=== PATIENT | female | born 1965 | race Caucasian/White ===

== ENCOUNTER 2024-07-25 06:09 | Emergency (ER) | payer BC ==
[2024-07-25] MEDS ORDERED: IBUPROFEN 400 MG TAB ONE (06:40)
[2024-07-25] MEDS ORDERED: IBUPROFEN 200 MG TAB PO ONE (06:40)
[2024-07-25] MEDS ORDERED: BENZONATATE 100 MG CAP PO ONE (06:40)
[2024-07-25 07:13] LABS: Influenza A Ag Negative; Influenza B Ag Positive
[2024-07-25 07:15] LABS: SARS-CoV-2 Antigen Rapid Res Positive (Negative)
--- NOTE | 2024-07-25 07:55 | RAD REPORT ---
Procedure: Chest Pa And Lat (2 Views) HISTORY: Cough COMPARISON: none FINDINGS: The lungs appear clear of acute infiltrate. No significant pleural effusion noted. The heart is normal size. IMPRESSION: No acute abnormality is displayed.
--- NOTE | 2024-07-25 08:09 | ER ---
Nurse's Notes [facility] Name: Radha Dow Age: 59 yrs Sex: Female : 1965 Arrival Date: 07/25/2024 Time: 06:09 Bed 21 Private MD: Diagnosis: Influenza B;SARS-associated coronavirus as the cause of diseases classified elsewhere Presentation: 07/25 06:29 Chief complaint: Patient states: cough, congestion, body aches X2 days. Coronavirus lg3 screen: Client denies travel out of the [place] in the last 14 days. Client presents with at least one sign or symptom that may indicate coronavirus-19. Standard/surgical mask placed on the client. Ebola Screen: No symptoms or risks identified at this time. Risk Assessment: Do you want to hurt yourself or someone else? Patient reports no desire to harm self or others. Onset of symptoms was July 23, 2024. 06:29 Method Of Arrival: Ambulatory lg3 06:29 Acuity: SAW 4 lg3 Triage Assessment: 06:29 General: Appears in no apparent distress. uncomfortable, Behavior is calm, cooperative. lg3 Pain: Complains of pain in generalized body aches. EENT: No deficits noted. Reports nasal congestion nasal discharge. Neuro: No deficits noted. Gonzales Agitation-Sedation Scale (RASS): 0 - Alert and Calm Level of Consciousness is awake, alert, obeys commands, Oriented to person, place, time, situation. Cardiovascular: No deficits noted. Denies chest pain, shortness of breath, Capillary refill < 3 seconds Clubbing of nail beds is absent JVD is absent Patient's skin is warm and dry. Respiratory: No deficits noted. Reports cough that is dry, persistent Airway is patent Respiratory effort is even, unlabored, Respiratory pattern is regular, symmetrical. GI: No deficits noted. No signs and/or symptoms were reported involving the gastrointestinal system. : No signs and/or symptoms were reported regarding the genitourinary system. Derm: No deficits noted. No signs and/or symptoms reported regarding the dermatologic system. Skin is intact, is healthy with good turgor, Skin is dry, Skin is normal, Skin temperature is warm. Musculoskeletal: No deficits noted. No signs and/or symptoms reported regarding the musculoskeletal system. Circulation, motion, and sensation intact. Range of motion: intact in all extremities. Historical: - Allergies: 06: No Known Allergies; lg3 - Home Meds: : lamotrigine oral [Active]; lg3 - PMHx: : Seizure; lg3 - PSHx: : section; lg3 - Immunization history:: Adult Immunizations up to date. - Infectious Disease History:: Denies. - Social history:: Smoking status: Patient denies any tobacco usage or history of. Patient/guardian denies using alcohol, street drugs. Screenin:30 [facility] ED Fall Risk Assessment (Adult) History of falling in the last 3 months, rg5 including since admission No falls in past 3 months (0 pts) Confusion or Disorientation No (0 pts) Intoxicated or Sedated No (0 pts) Impaired Gait No (0 pts) Mobility Assist Device Used Altered Elimination No (0 pt) Score/Fall Risk Level 0 - 2 = Low Risk Oriented to surroundings, Maintained a safe environment, Hourly rounding (assess needs \T\ fall precautionary measures) done. Abuse screen: Denies threats or abuse. Nutritional screening: No deficits noted. Tuberculosis screening: No symptoms or risk factors identified. Assessment: 06:30 General: Appears uncomfortable, Behavior is calm, cooperative, appropriate for age. rg5 Pain: Complains of pain in body. Neuro: Level of Consciousness is awake, alert, obeys commands, Oriented to person, place, time, situation. Cardiovascular: Denies chest pain, Patient's skin is warm and dry. Respiratory: Reports shortness of breath cough that is persistent Airway is patent Trachea midline Respiratory effort is even, unlabored, Respiratory pattern is regular, symmetrical, Breath sounds are clear. GI: Abdomen is round non-distended, Abd is soft and non tender. : No signs and/or symptoms were reported regarding the genitourinary system. EENT: No signs and/or symptoms were reported regarding the EENT system. Derm: Skin is intact, Skin is dry, Skin is normal, Skin temperature is warm. Musculoskeletal: Circulation, motion, and sensation intact. Range of motion: intact in all extremities. Vital Signs: :29 BP 138 / 94; Pulse 97; Resp 18; Temp 99; Pulse Ox 92% on R/A; Weight 86.18 kg; Height 5 oe ft. 4 in. ; 06:29 Body Mass Index 32.61 (86.18 kg, 162.56 cm) oe ED Course: 06:14 Patient arrived in ED. [id number] 06:25 Sudarshan Lopez DO is Attending Physician. ms3 06:25 Quincy Draper, DAMIAN is Primary Nurse. rg5 06:29 Triage completed. lg3 06:29 Arm band placed on right wrist. lg3 06:30 Patient has correct armband on for positive identification. Call light in reach. Door rg5 closed. Noise minimized. 06:30 No provider procedures requiring assistance completed. rg5 06:53 Chest Pa And Lat (2 Views) XRAY In Process Unspecified. EDMS 06:56 COVID-19 Ag + Flu A+B Ag Sent. oe 07:08 Primary Nurse role handed off by Quincy Draper RN bp 07:08 Derik Bonds, DAMIAN is Primary Nurse. bp 07:11 Attending Physician role handed off by Sudarshan Lopez DO ms3 07:11 Bryan Fisher MD is Attending Physician. ms3 08:06 Sudarshan Lopez DO is Attending Physician. ms3 08:09 Vin Ahn DO is Referral Physician. ms3 08:17 Patient did not have IV access during this emergency room visit. bp Administered Medications: 06:50 Drug: Ibuprofen PO 600 mg PO once Route: PO; rg5 08:18 Follow up: Response: No adverse reaction bp 06:50 Drug: Tessalon Perle PO 200 mg PO once Route: PO; rg5 08:18 Follow up: Response: No adverse reaction bp Medication: 06:30 VIS not applicable for this client. rg5 Outcome: 08:09 Discharge ordered by . ms3 08:17 Discharged to home ambulatory, with family, bp 08:17 Condition: stable 08:17 Discharge instructions given to patient, family, Instructed on discharge instructions, follow up and referral plans. medication usage, Demonstrated understanding of instructions, follow-up care, medications, Prescriptions given X 2, 08:18 Patient left the ED. bp Signatures: Dispatcher [employer] EDMS Servando Nicole oe Derik Bonds RN RN bp Able, Lacie, RN RN lg3 Sudarshan Lopez DO DO ms3 Jessica Ponce [email or web address] Draper, Quincy, RN RN rg5
--- NOTE | 2024-07-25 08:09 | EDPHYS ---
Physician Documentation [facility] Name: Radha Dow Age: 59 yrs Sex: Female : 1965 Arrival Date: 07/25/2024 Time: 06:09 Bed 21 Private MD: ED Physician Sudarshan Lopez HPI: 07/25 06:41 This 59 yrs old Female presents to ER via Ambulatory with complaints of Flu Symptoms. ms3 06:41 59-year-old female with past medical history of seizures presents to the emergency ms3 department for cough, body aches that began on Alek morning. Patient endorses chills. Patient denies nausea, vomiting, fever. Patient signs in the emergency department with similar symptoms.. Historical: - Allergies: 06:29 No Known Allergies; lg3 - Home Meds: 06:29 lamotrigine oral [Active]; lg3 - PMHx: 06:29 Seizure; lg3 - PSHx: 06:29 section; lg3 - Immunization history:: Adult Immunizations up to date. - Infectious Disease History:: Denies. - Social history:: Smoking status: Patient denies any tobacco usage or history of. Patient/guardian denies using alcohol, street drugs. ROS: 06:41 Cardiovascular: Negative for chest pain, and palpitations. Abdomen/GI: Negative for ms3 abdominal pain, nausea, vomiting, diarrhea, and constipation, MS/Extremity: Negative for injury and deformity, Skin: Negative for injury, rash, and discoloration, 06:41 Constitutional: Positive for body aches, chills, 06:41 Respiratory: Positive for cough, Exam: 06:41 Constitutional: This is a well developed, well nourished patient who is awake, alert, ms3 and in no acute distress. Cardiovascular: Regular rate and rhythm with a normal S1 and S2. No gallops, murmurs, or rubs. Normal PMI, no JVD. No pulse deficits. Respiratory: Lungs have equal breath sounds bilaterally, clear to auscultation and percussion. No rales, rhonchi or wheezes noted. No increased work of breathing, no retractions or nasal flaring. Abdomen/GI: Soft, non-tender, with normal bowel sounds. No distension or tympany. No guarding or rebound. No evidence of tenderness throughout. Skin: Warm, dry with normal turgor. Normal color with no rashes, no lesions, and no evidence of cellulitis. MS/ Extremity: Pulses equal, no cyanosis. Neurovascular intact. Full, normal range of motion. Vital Signs: 06:29 BP 138 / 94; Pulse 97; Resp 18; Temp 99; Pulse Ox 92% on R/A; Weight 86.18 kg; Height 5 oe ft. 4 in. ; 06:29 Body Mass Index 32.61 (86.18 kg, 162.56 cm) oe MDM: 06:32 Medical Screening Exam initiated ms3 06:41 Differential Diagnosis: Bronchitis Influenza Upper Respiratory Infection Viral Syndrome ms3 Pneumonia. 08:24 Data reviewed: vital signs, nurses notes, lab test result(s), radiologic studies, and ms3 as a result, I will discharge patient. I considered the following discharge prescriptions or medication management in the emergency department Medications were administered in the Emergency Department. See MAR. Counseling: I had a detailed discussion with the patient and/or guardian regarding the historical points, exam findings, and any diagnostic results supporting the discharge/admit diagnosis, lab results, radiology results, the need for outpatient follow up, to return to the emergency department if symptoms worsen or persist or if there are any questions or concerns that arise at home. Special discussion: I discussed with the patient/guardian in detail that at this point there is no indication for admission to the hospital. It is understood, however, that if the symptoms persist or worsen the patient needs to return immediately for re-evaluation. ED course: Discussed positive flu B and COVID results with patient. Patient to follow-up with Dr. Ahn in 2 to 3 days. Patient understands and agrees with plan. All questions were answered. Return precautions discussed include worsening symptoms, or any other concerns. On reevaluation patient is alert and oriented x 4, in no apparent distress, nontoxic-appearing, ambulatory in the emergency department, speaking full sentences.. 07/25 06:25 Order name: COVID-19 Ag + Flu A+B Ag; Complete Time: 07:18 ms3 07/25 06:33 Order name: Chest Pa And Lat (2 Views) XRAY; Complete Time: 08:07 ms3 Administered Medications: 06:50 Drug: Ibuprofen PO 600 mg PO once Route: PO; rg5 08:18 Follow up: Response: No adverse reaction bp 06:50 Drug: Tessalon Perle PO 200 mg PO once Route: PO; rg5 08:18 Follow up: Response: No adverse reaction bp Disposition Summary: 07/25/24 08:09 Discharge Ordered Notes: Location: Home ms3 Condition: Stable ms3 Diagnosis - Influenza B ms3 - SARS-associated coronavirus as the cause of diseases classified elsewhere ms3 Followup: ms3 - With: Vin Ahn DO - When: 2 - 3 days - Reason: Recheck today's complaints Discharge Instructions: - Discharge Summary Sheet ms3 - Influenza, Adult ms3 - COVID-19 ms3 Forms: - Work release form hb - Medication Reconciliation Form ms3 - Antibiotic Education ms3 - Prescription Opioid Use ms3 - Patient Portal Instructions ms3 - Leadership Thank You Letter ms3 Prescriptions: - benzonatate 200 mg Oral capsule - take 1 capsule ORAL route 3 times per day as needed; 20 capsule; Refills: 0, ms3 Product Selection Permitted - Tamiflu 75 mg Oral capsule - take 1 tablet ORAL route every 12 hours for 5 days; 10 tablet; Refills: 0, ms3 Product Selection Permitted Signatures: Dispatcher [employer] EDAnitha Delvalle RN RN lg3 Sudarshan Lopez DO DO ms3 Quincy Draper, DAMIAN RN rg5 Derik Bonds RN bp Corrections: (The following items were deleted from the chart) 06:25 06:25 COVID-19 Ag + Flu A+B Ag+I.LAB.BRZ ordered. EDND EDND 08:08 07:11 Transition of care: After a detail discussion of the patient's case, care is ms3 transferred to Bryan Fisher MD ms3
[2024-07-25 08:26] VITALS: BP 138/94; TEMP 99; O2SAT 92
== END 2024-07-25 08:18 | disposition home or self-care (01) ==
LOC: ER 06:09
DX: U07.1 COVID-19 (principal); J10.1 Influenza due to other identified influenza virus with other respiratory manifestations
CPT/HCPCS: 36415; 71046; 87428; 99283

== ENCOUNTER 2024-07-25 18:56 | Emergency (ER) | payer BC ==
--- NOTE | 2024-07-25 19:23 | EDPHYS ---
Physician Documentation [facility] Name: Radha Dow Age: 59 yrs Sex: Female : 1965 Arrival Date: 07/25/2024 Time: 18:56 Bed IW3 Private MD: ED Physician Araceli Ahn HPI: 07/25 19:21 This 59 yrs old Female presents to ER via Ambulatory with complaints of Covid+. sp3 19:21 59-year-old female with history of seizure seen earlier this morning and diagnosed with sp3 both COVID-19 and influenza and sent home on Tamiflu and Tessalon Perles. Patient returns with son with similar symptoms. Patient is also taken back in for an additional medication for cough. She states that the Tessalon Perles is not working. Remainder of ROS negative. Please see prior chart for full documentation on visit from earlier today.. Historical: - Allergies: 19:18 No Known Allergies; iw - PMHx: 19:18 Seizure; iw - PSHx: 19:18 section; iw - Immunization history:: Adult Immunizations not up to date. - Infectious Disease History:: Denies. - Social history:: Smoking status: Patient denies any tobacco usage or history of. ROS: 19:22 Constitutional: Negative for fever, chills, and weight loss, Eyes: Negative for injury, sp3 pain, redness, and discharge, ENT: Negative for injury, pain, and discharge, Neck: Negative for injury, pain, and swelling, Cardiovascular: Negative for chest pain, palpitations, and edema, Abdomen/GI: Negative for abdominal pain, nausea, vomiting, diarrhea, and constipation, Back: Negative for injury and pain, MS/Extremity: Negative for injury and deformity, Skin: Negative for injury, rash, and discoloration, Neuro: Negative for headache, weakness, numbness, tingling, and seizure, Psych: Negative for depression, anxiety, suicide ideation, homicidal ideation, and hallucinations, Allergy/Immunology: Negative for hives, rash, and allergies, 19:22 All other systems are negative, Exam: 19:22 Constitutional: This is a well developed, well nourished patient who is awake, alert, sp3 and in no acute distress. Head/Face: Normocephalic, atraumatic. Eyes: Pupils equal round and reactive to light, extra-ocular motions intact. Lids and lashes normal. Conjunctiva and sclera are non-icteric and not injected. Cornea within normal limits. Periorbital areas with no swelling, redness, or edema. ENT: Nares patent. No nasal discharge, no septal abnormalities noted. External auditory canals are clear. Oropharynx with no redness, swelling, or masses, exudates, or evidence of obstruction, uvula midline. Mucous membranes moist. Neck: Trachea midline, no thyromegaly or masses palpated, and no cervical lymphadenopathy. Supple, full range of motion without nuchal rigidity, or vertebral point tenderness. No Meningismus. Chest/axilla: Normal chest wall appearance and motion. Nontender with no deformity. No lesions are appreciated. Cardiovascular: Regular rate and rhythm with a normal S1 and S2. No gallops, murmurs, or rubs. Normal PMI, no JVD. No pulse deficits. Abdomen/GI: Soft, non-tender, with normal bowel sounds. No distension or tympany. No guarding or rebound. No evidence of tenderness throughout. Back: No spinal tenderness. No costovertebral tenderness. Full range of motion. Skin: Warm, dry with normal turgor. Normal color with no rashes, no lesions, and no evidence of cellulitis. MS/ Extremity: Pulses equal, no cyanosis. Neurovascular intact. Full, normal range of motion. Neuro: Awake and alert, GCS 15, oriented to person, place, time, and situation. Cranial nerves II-XII grossly intact. Motor strength 5/5 in all extremities. Sensory grossly intact. Cerebellar exam normal. Normal gait. 19:22 Respiratory: Active cough noted. Vital signs otherwise normal and stable., Vital Signs: 19:17 BP 129 / 96; Pulse 92; Resp 18; Temp 99; Pulse Ox 96% on R/A; Weight 86.18 kg; Height 5 iw ft. 4 in. ; 19:17 Body Mass Index 32.61 (86.18 kg, 162.56 cm) iw MDM: 19:07 Medical Screening Exam initiated sp3 19:22 Data reviewed: vital signs, nurses notes, old medical records. ED course: Will add sp3 Bromfed to medications. I have urged patient to get her Tamiflu filled even if she has to drive to [place].. Administered Medications: No medications were administered Disposition Summary: 02/23/25 19:23 Discharge Ordered Notes: Location: Home sp3 Condition: Stable sp3 Diagnosis - COVID-19, cough sp3 Followup: sp3 - With: Private Physician - When: Upon discharge from the Emergency Department - Reason: Continuance of care Discharge Instructions: - Discharge Summary Sheet sp3 - COVID-19 sp3 Forms: - Medication Reconciliation Form sp3 - Antibiotic Education sp3 - Prescription Opioid Use sp3 - Patient Portal Instructions sp3 - Leadership Thank You Letter sp3 Prescriptions: - Bromfed DM 2-30-10 mg/5 mL Oral syrup - administer 10 milliliter ORAL route 2 times per day as needed for cold sp3 symptoms; 250 milliliter; Refills: 0, Product Selection Permitted Signatures: Yarely Clark RN RN iw Araceli Ahn MD MD sp3
--- NOTE | 2024-07-25 19:23 | ER ---
Nurse's Notes [facility] Name: Radha Dow Age: 59 yrs Sex: Female : 1965 Arrival Date: 07/25/2024 Time: 18:56 Bed IW3 Private MD: Diagnosis: COVID-19, cough Presentation: 07/25 19:17 Chief complaint: Patient states: Was diagnosed with covid this morning , still has a iw cough and pain in her ribs. Coronavirus screen: Client presents with at least one sign or symptom that may indicate coronavirus-19. Ebola Screen: No symptoms or risks identified at this time. Initial Sepsis Screen: Does the patient meet any 2 criteria? No. Patient's initial sepsis screen is negative. Does the patient have a suspected source of infection? No. Patient's initial sepsis screen is negative. Risk Assessment: Do you want to hurt yourself or someone else? Patient reports no desire to harm self or others. Onset of symptoms was July 23, 2024. 19:17 Method Of Arrival: Ambulatory iw 19:17 Acuity: SAW 4 iw Triage Assessment: 19:20 General: Appears in no apparent distress. Behavior is calm, cooperative. iw Historical: - Allergies: 19:18 No Known Allergies; iw - PMHx: 19:18 Seizure; iw - PSHx: 19:18 section; iw - Immunization history:: Adult Immunizations not up to date. - Infectious Disease History:: Denies. - Social history:: Smoking status: Patient denies any tobacco usage or history of. Screenin:32 [facility] ED Fall Risk Assessment (Adult) History of falling in the last 3 months, iw including since admission No falls in past 3 months (0 pts) Confusion or Disorientation No (0 pts) Intoxicated or Sedated No (0 pts) Impaired Gait No (0 pts) Mobility Assist Device Used No (0 pt) Altered Elimination No (0 pt) Score/Fall Risk Level 0 - 2 = Low Risk Oriented to surroundings, Maintained a safe environment. Abuse screen: Denies threats or abuse. Denies injuries from another. Nutritional screening: No deficits noted. Tuberculosis screening: No symptoms or risk factors identified. Assessment: 19:20 General: Appears in no apparent distress. Behavior is calm, cooperative. General: iw Reports fever for feeling ill for fatigue for. Pain: Complains of pain in head. Neuro: Level of Consciousness is awake, alert, obeys commands, Oriented to person, place, time, situation, Moves all extremities. Cardiovascular: Patient's skin is warm and dry. Respiratory: Respiratory effort is even, unlabored, Respiratory pattern is regular, symmetrical. Derm: Skin is intact, is healthy with good turgor. Musculoskeletal: Range of motion: intact in all extremities. Vital Signs: 19:17 BP 129 / 96; Pulse 92; Resp 18; Temp 99; Pulse Ox 96% on R/A; Weight 86.18 kg; Height 5 iw ft. 4 in. ; 19:17 Body Mass Index 32.61 (86.18 kg, 162.56 cm) iw ED Course: 19:03 Patient arrived in ED. mr 19:06 Araceli Ahn MD is Attending Physician. sp3 19:18 Triage completed. iw 19:18 Arm band placed on. iw 19:31 No provider procedures requiring assistance completed. Patient did not have IV access iw during this emergency room visit. 19:32 Yarely Clark, RN is Primary Nurse. iw Administered Medications: No medications were administered Outcome: 19:23 Discharge ordered by . sp3 19:32 Discharged to home ambulatory, with family, iw 19:32 Condition: good 19:32 Discharge instructions given to family, Instructed on discharge instructions, follow up and referral plans. medication usage, Demonstrated understanding of instructions, follow-up care, medications, Prescriptions given X 1, 19:32 Patient left the ED. iw Signatures: Too Alyce, Reg Reg mr Yarely Clark, DAMIAN RN iw Araceli Ahn MD MD sp3
[2024-07-25 19:38] VITALS: BP 129/96; TEMP 99; O2SAT 96
== END 2024-07-25 19:32 | disposition home or self-care (01) ==
LOC: ER 18:56
DX: U07.1 COVID-19 (principal)
CPT/HCPCS: 99283